=== PATIENT | female | born 1965 | race Caucasian/White ===

== ENCOUNTER 2017-07-15 05:56 | Observation (INO) | payer OTHER ==
[~2017-07-15 05:56] MED LIST: Buffered Lidocaine 0.9% SYRIN* 5 ML/SYR SYRINGE INTRADERM ONE
[2017-07-15] MEDS ORDERED: oxyCODONE/Acetamin 5/325 MG* TAB PO PRN (05:59)
[2017-07-15] MEDS ORDERED: Morphine INJ* 2 MG/ML 1 ML CARPUJECT IV PRN (05:59)
[2017-07-15] MEDS ORDERED: DiMENhydriNATE IV* 50 MG/ML VIAL IV PUSH PRN (05:59)
[2017-07-15] MEDS ORDERED: PROCHLORPERAZINE INJ 5 MG/ML 2 ML VIAL IV PRN (05:59)
[2017-07-15] MEDS ORDERED: Scopolamine 1.5 mg* PATCH TRANSDERM PRN (05:59)
[2017-07-15] MEDS ORDERED: fentaNYL* 50 MCG/ML 2 ML VIAL (100 MCG VIAL) IV PRN (05:59)
[2017-07-15] MEDS ORDERED: Famotidine IV* 10 MG/ML 2 ML (20 mg) IV ONE (06:00)
[2017-07-15] MEDS ORDERED: ceFAZolin 2 GM PREMIX (*) 2 GM/50 ML BAG IVPB ONE (06:03)
[2017-07-15] MEDS ORDERED: Buffered Lidocaine 0.9% SYRIN* 5 ML/SYR SYRINGE ONE (06:03)
[2017-07-15] MEDS ORDERED: Famotidine IV* 10 MG/ML 2 ML (20 mg) ONE (06:03)
[2017-07-15] MEDS ORDERED: Thrombin 5,000 UNITS* 1 APPLIC KIT - topical use - TOPICAL ONE ×2 (07:12→09:25)
[2017-07-15] MEDS ORDERED: Lidocaine 1% MPF wEPI 200,000* 30 ML SDV ONE (07:12)
[2017-07-15] MEDS ORDERED: Bacitracin IV* 50,000 UNITS INJ ONE (07:13)
[2017-07-15] MEDS ORDERED: fentaNYL* 50 MCG/ML 2 ML VIAL (100 MCG VIAL) ONE ×2 (07:34→11:43)
[2017-07-15] MEDS ORDERED: Atracurium* 10 MG/ML 10 ML VIAL ONE (07:34)
[2017-07-15] MEDS ORDERED: KETAMINE HCL* 50 MG/ML 10 ML VIAL ONE (07:34)
[2017-07-15] MEDS ORDERED: Midazolam* 1 MG/ML 10 ML VIAL (10 MG) ONE (07:34)
[2017-07-15] MEDS ORDERED: Phenylephrine IV* 40 MCG/ML 10 ML SYRINGE ONE (08:16)
[2017-07-15] MEDS ORDERED: Glycopyrrolate IV* 0.2 MG/ML 1 ML VIAL ONE (08:17)
[2017-07-15] MEDS ORDERED: Lidocaine 2% PF * 5 ML VIAL ONE (08:17)
[2017-07-15] MEDS ORDERED: Neostigmine Methylsulfate* 2 MG/2 ML SYRINGE ONE (08:17)
[2017-07-15] MEDS ORDERED: Ondansetron INJ* 2 MG/ML VIAL ONE (08:17)
[2017-07-15] MEDS ORDERED: EPHEDrine (Pressors)* 50 MG/ML VIAL ONE (08:17)
[2017-07-15] MEDS ORDERED: Propofol* 10 MG/ML 20 ML BTL IV PUSH ONE (08:17)
[2017-07-15] MEDS ORDERED: Morphine INJ* 10 MG/ML 1 ML CARPUJECT ONE (08:17)
[2017-07-15] MEDS ORDERED: Dexamethasone IV* 4 MG/ML 1 ML (4 MG) ONE (08:17)
[2017-07-15] MEDS ORDERED: Acetaminophen TAB* 325 MG PO PRN (10:03)
[2017-07-15] MEDS ORDERED: Ondansetron INJ* 2 MG/ML VIAL IV PRN (10:03)
[2017-07-15] MEDS ORDERED: Magnesium Hydroxide LIQ* 30 ML UDC PO PRN (10:03)
[2017-07-15] MEDS ORDERED: HYDROcodone/ACETAMIN 5-325 MG* 1 TAB PO PRN ×2 (10:03→10:10)
[2017-07-15] MEDS ORDERED: Labetalol IV* 5 MG/ML 20 ML VIAL ONE (10:08)
[2017-07-15] MEDS ORDERED: Flumazenil* 0.1 MG/ML 5 ML MDV ONE (10:09)
--- NOTE | 2017-07-15 12:01 | RAD ---
HISTORY: Anterior cervical fusion discectomy COMPARISONS: MRI dated March 05, 2017 VIEWS: 3, portable intraoperative views of the spine for localization during spinal surgery. FINDINGS: A lateral view at 8:10 AM demonstrates a needle opposite of C5-C6. A lateral view at 8:30 AM demonstrates a needle within the intervertebral disc space at C5-C6. A lateral view at 10:00 AM demonstrates an anterior cervical fusion plate with screws at C4, C5, and C6. Intervertebral graft material is noted at C4-C5 and C5-C6 IMPRESSION: LIMITED PORTABLE INTRAOPERATIVE VIEWS OF THE SPINE FOR LOCALIZATION DURING SPINAL SURGERY.
[2017-07-15] MEDS ORDERED: Benzocaine/Menthol LOZ* 1 LOZENGE PO PRN (12:42)
[2017-07-15] MEDS ORDERED: HYDROcodone/ACETAMIN 5-325 MG* 1 TAB ONE (12:55)
[2017-07-15] MEDS ORDERED: Lisinopril TAB* 10 MG PO SCH (18:00)
[2017-07-15] MEDS: PAROXETINE 12.5 MG PO SCH (22:58)
[2017-07-15] MEDS ORDERED: RIZATRIPTAN 10 MG PO ONE ×2 (23:00)
[2017-07-16 07:54] VITALS: BP 109/63
--- NOTE | 2017-07-16 07:54 | PN ---
Progress Note - Progress Note Date of Service: 07/16/17 SOAP: Subjective: []POD#1 Doing well Neck soft c/o migraine headache Developed N/V after pain med Objective: []Neuro intact Minimal drain output Assessment: []Satis post op course Plan: [] D/C today D/C Instructions given
[2017-07-16] MEDS ORDERED: traMADol TAB* 50 MG PO PRN (08:03)
[2017-07-16] MEDS ORDERED: HYDROcodone/ACETAMIN 5-325 MG* 1 TAB PO PRN (08:56)
[2017-07-16] MEDS: PAROXETINE 12.5 MG PO SCH (09:26)
--- NOTE | 2017-07-17 07:15 | OP ---
OPERATIVE REPORT: DATE OF OPERATION: 07/15/17 DATE OF : 65 SURGEON: Mayco Paz MD WELDER APPRENTICE: RAYO Ramires ANESTHESIA: General. PRE-OP DIAGNOSIS: Cervical spondylosis, C4-5, C5-6. POST-OP DIAGNOSIS: Cervical spondylosis, C4-5, C5-6. OPERATIVE PROCEDURE: Anterior cervical diskectomy and allograft fusion, C4-5, C5- 6, with anterior i nstrumentation. DESCRIPTION OF PROCEDURE: After satisfactory general anesthesia was obtained, the patient was placed with her head supported on a horseshoe head rest and the neck slightly extended. A scalp x-ray was taken to enable localization of a skin incision over the C5 space. This incision began at midline an d extended to the right side distance of 3 cm. This incision was infiltrated with 1% Xylocaine with epinephrine after which it was turned down sharply to the level of the subcutaneous tissues. A super iorly and inferiorly based subcutaneous flap was then fashioned and the platysma muscle divided along the direction of its fibers. A plane was then developed between the sternocleidomastoid and strap m uscles and carried down to the anterior aspect of the spine. The C5-6 disk space was identified with an additional x-ray after which attention was first directed to the C4-5 level where the attachment of the longus colli muscle was taken down and self-retaining retractor was placed to facilitate expos ure. There was a large anterior osteophyte at this level and this anterior osteophyte was first dril led away along with the anterior two-thirds of disk material. After doing this, Oxford distractor pi ns were placed in the C4 and C5 vertebral bodies and gentle disk space distraction applied. The [facility] at[facility] microscope was brought into the field and the remainder of the procedure was done under mi croscopic visualization. Projecting back at this level were spurs primarily coming out the superior aspect of the C5 vertebral body. This was causing bilateral neural foraminal compromise. The spurs were decompressed using combination of the Midas Cisco drill as well as 1- and 2-mm Kerrison rongeurs. The dissection was carried back until normal dura was encountered. At the conclusion of the decompr ession, a nerve hook went readily with both C5 nerves roots. The interspace was then prepared for re ceipt of an 8-mm bone graft filled with bony matrix, which was slightly countersunk. Attention was then directed to the C5-6 level where again the anterior two-thirds of disk material as well as an anterior spur was removed with the Midas Cisco drill. Oxford distractor pins were then plac ed in the C5 and C6 vertebral bodies and gentle disk space distraction applied. The pathology at thi s level was again one of degenerative disk disease with spondylosis. The dissection was carried back until normal dura was encountered and the spurs removed. At the conclusion of the decompression at this level, both C6 nerve roots were noted to be free in their course. A 7-mm graft was selected for this level and slightly countersunk. A REAC Fueltronic Zevo plate was then selected to run from C4 to C6. This was secured into position with 13-mm soft drilling screws. A post-construct x-ray was taken s howing good graft and screw placement. The wound was then thoroughly irrigated after which a drain w as placed in the prevertebral space and tunneled out toward the right side. The subcutaneous tissues were then reapproximated with 3-0 Vicryl and the skin was closed with Steri-Strips. The estimated b lood loss was less than 50 cc. The final sponge, padding, and needle counts were correct. The patie nt was taken to the recovery room, extubated, and in stable condition. [id number]/[facility] #: [id number]
--- NOTE | 2017-07-17 15:40 | DS ---
DATE OF ADMISSION: 07/15/2017. DATE OF DISCHARGE: 07/16/2017. ATTENDING PHYSICIAN: Dr. Mayco Paz* (dictated by RAYO Russell). DISCHARGE DIAGNOSES: 1. Cervical disk disease, C4-5 and C5-6. 2. Cervical spondylosis, C4-5 and C5-6. 3. History of pulmonary embolism. 4. Hypertension. PROCEDURE: Anterior cervical diskectomy and fusion at C4-5 and C5-6 with anterior instrumentation. HOSPITAL COURSE: This 51-year-old female was seen in the office in January of 2017 with complaint of three months of neck pain. She had participated in conservative treatment, including physical therapy over the next several months and failed to improve. Elective surgical intervention was then discussed with the patient and she decided to proceed with this option. On the day of admission, she was taken to surgery where under general anesthesia an anterior cervical diskectomy and fusion at C4-5 and C5-6 with anterior instrumentation operation was carried out. Postoperatively, she was feeling very well. She complained of throat soreness with swallowing and mild neck pain at the incision site. She was eating soft foods without difficulty and swallowing liquids easily. She was ambulating independently and she was voiding without difficulty. On the first postoperative day, the Santhosh wound drain had slowed and was therefore discontinued. She was discharged home on the first postoperative day. DISCHARGE INSTRUCTIONS: Activity level and wound care were discussed with the patient and information was provided. She was also instructed to resume the Lovenox and Coumadin. DISCHARGE MEDICATIONS: Castell 5/325 mg one to two tabs by mouth every 4 hours as needed for pain. FOLLOW-UP: The patient will be seen in the office on July 30 for follow-up evaluation. RAYO RUSSELL [id number]/[facility] #: [id number] [facility]OSPITALMarc
[2017-07-18] MEDS ORDERED: Scopolamine PATCH Remove* 1 NOTE MISC PATCH OFF ONE (06:00)
== END 2017-07-16 11:20 | disposition home or self-care (01) ==
LOC: OR 05:56 → SSU 12:20
PROVIDERS: ADMIT Neurological Surgery; ATTEND Neurological Surgery
PROC: 0RB50ZZ Excision of Cervicothoracic Vertebral Disc, Open Approach (ICD-10-PCS; 2017-07-15)
PROC: 0RG20A0 Fusion of 2 or more Cervical Vertebral Joints with Interbody Fusion Device, Anterior Approach, Anterior Column, Open Approach (ICD-10-PCS; 2017-07-15)
PROC: 0RB30ZZ Excision of Cervical Vertebral Disc, Open Approach (ICD-10-PCS; principal; 2017-07-15 07:45)
DX: M50.321 Other cervical disc degeneration at C4-C5 level (principal); M50.322 Other cervical disc degeneration at C5-C6 level; M47.9 Spondylosis, unspecified; I10 Essential (primary) hypertension; Z86.711 Personal history of pulmonary embolism
CPT/HCPCS: 72020; 96374; 96375; 96376; A9270-GY; C1713; C1776; G0378; J0690; J1100; J2001; J2250; J2270; J2405; J2704; J3010

== ENCOUNTER 2018-02-28 12:38 | Emergency (ER) | payer OTHER ==
[2018-02-28 13:26] LABS: ABS Basophils 0 10^3/ul (0-0.2); ABS Eosinophils 0 10^3/ul (0-0.6); ABS Lymphocytes 1.5 10^3/ul (1.0-4.8); ABS Monocytes 0.4 10^3/ul (0-0.8); ABS Neutrophils 2.5 10^3/ul (1.5-7.7); ABS Nucleated RBC 0 10^3/ul; Eosinophil % 0.7 % (0-6); Hematocrit 35 % (35-47); Hemoglobin 11.9 g/dl (12.0-16.0); Lymphocyte % 33.9 % (25-47); Mean Corpuscular HGB Conc 34 g/dl (31-36); Mean Corpuscular Hemoglobin 34 pg (27-31); Mean Corpuscular Volume 97 fL (80-97); Nucleated Red Blood Cells % 0; Platelet Count 225 10^3/ul (150-450); Red Blood Count 3.54 10^6/ul (4.00-5.40); Red Cell Distribution Width 13 % (10.5-15); White Blood Count 4.5 10^3/ul (3.5-10.8)
[2018-02-28 13:43] LABS: EGFR Non-African American 72.2 (>60)
--- NOTE | 2018-02-28 14:58 | RAD ---
Indication: Shortness of breath. 2 views of the chest including dual energy PA views demonstrate no mediastinal shift. Heart is of normal size and configuration. Lung calle are clear. When compared to previous exam of July 08, 2017 no significant change is noted. IMPRESSION: No active cardiopulmonary disease is noted.
--- NOTE | 2018-02-28 15:19 | ED ---
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 She feels this may be a side effect of her recent medication change , right was concerned over another PE. She does not endorse chest pain, however endorses midsternal chest "pressure" only with shortness of breath. The SOB is intermittent, only slightly worse with exertion and not worse with deep inspiration. Denies any fevers, sweats, chills. Denies any cough, cough production, abdominal pain, nausea, vomiting. Normal BM. Denies any calf pain , OCP use, known malignancy or smoking history. Denies any calf pain. Patient is very active and continues to run daily. Diet is fair to good. Alcohol use is scarce and denies any drug use. Patient states she has had full workups in the past to assess the reasoning behind her saddle PEs but had no findings. - History of Current Complaint Chief Complaint: EDShortnessOfBreath Stated Complaint: SOB Time Seen by Provider: 02/28/18 12:58 Hx Obtained From: Patient Hx Last Menstrual Period: having hysterectomy 07/07/12 Onset/Duration: Started Hours Ago Timing: Constant Initial Severity: Mild Current Severity: Mild Pain Intensity: 0 Pain Scale Used: 0-10 Numeric Associated Signs and Symptoms: Positive: Shortness of Breath. Negative: Cough, Productive Cough, Wheezing, Nasal Congestion - Risk Factors Pulmonary Embolism Risk Factors: Negative Cardiac Risk Factors: Negative Atrial Fibrillation Risk Factors: Negative TAD Risk Factors: Negative - Allergy/Home Medications Allergies/Adverse Reactions: Allergies Allergy/AdvReac Type Severity Reaction Status Date / Time chlorhexidine Allergy Hives Verified 02/28/18 12:47 ENVIRONMENTAL Allergy See Comment Uncoded 02/28/18 12:47 Home Medications: Home Medications Xarelto 20 mg 20 mg PO DAILY 02/28/18 [History Confirmed 02/28/18] PMH/Surg Hx/FS Hx/Imm Hx Previously Healthy: Yes Endocrine/Hematology History: Denies: Hx Diabetes, Hx Thyroid Disease Cardiovascular History: Reports: Hx Embolism, Hx Hypertension - MEDICATION, Other Cardiovascular Problems/Disorders - HX PE 2012. ON WARARIN, JUST CHANGED TO XARELTO Denies: Hx Angina, Hx Congestive Heart Failure, Hx Coronary Artery Disease, Hx Hypercholesterolemia, Hx Myocardial Infarction, Hx Pacemaker/ICD, Hx Valvular Heart Disease Respiratory History: Reports: Hx Pulmonary Embolism - 2013, Hx Sleep Apnea Denies: Hx Asthma, Hx Chronic Obstructive Pulmonary Disease (COPD) GI History: Denies: Hx Ulcer History: Denies: Hx Renal Disease Musculoskeletal History: Reports: Other Musculoskeletal History - NECK PAIN Sensory History: Reports: Hx Contacts or Glasses Denies: Hx Hearing Aid Opthamlomology History: Reports: Hx Contacts or Glasses Neurological History: Reports: Hx Headaches, Hx Migraine - stress related and from neck issues, Other Neuro Impairments/Disorders - PAIN CLINIC PT. Psychiatric History: Reports: Hx Anxiety - panic attacks, Hx Panic Disorder - Surgical History Surgery Procedure, Year, and Place: BUNIONECTOMY BILAT FEET;. UTERINE ABLATION AGE 17;. HYSTERECTOMY 07/08;. CYST REMOVED FROM RIGHT FOOT;. APPENDECTOMY 2014; Hx Anesthesia Reactions: No - Immunization History Hx Pertussis Vaccination: No Immunizations Up to Date: Unable to Obtain/Confirm Infectious Disease History: No Infectious Disease History: Denies: Hx Hepatitis, Hx Human Immunodeficiency Virus (HIV), Traveled Outside the [place] in Last 30 Days - Social History Occupation: Employed Full-time Lives: With Family Alcohol Use: Occasionally Alcohol Amount: 2-3/wk Hx Substance Use: No Substance Use Type: Reports: None Hx Tobacco Use: No Smoking Status (MU): Never Smoked Tobacco Amount Used/How Often: pack a day for 4 years Have You Smoked in the Last Year: No Review of Systems Constitutional: Negative Negative: Fever, Chills, Fatigue, Skin Diaphoresis Negative: Palpitations, Chest Pain Positive: Shortness Of Breath. Negative: Cough Genitourinary: Negative Positive: no symptoms reported, see HPI Negative: Arthralgia, Myalgia, Decreased ROM Skin: Negative Neurological: Negative All Other Systems Reviewed And Are Negative: Yes Physical Exam Triage Information Reviewed: Yes Vital Signs On Initial Exam: Initial Vitals Temp Pulse Resp BP Pulse Ox 99.0 F 72 16 131/79 100 02/28/18 12:43 02/28/18 12:43 02/28/18 12:43 02/28/18 12:43 02/28/18 12:43 Vital Signs Reviewed: Yes Appearance: Positive: Well-Appearing, Well-Nourished Skin: Positive: Warm, Skin Color Reflects Adequate Perfusion Head/Face: Positive: Normal Head/Face Inspection Eyes: Positive: EOMI, MARTIN, Conjunctiva Clear Neck: Positive: Supple, No Lymphadenopathy Respiratory/Lung Sounds: Positive: Clear to Auscultation, Breath Sounds Present Cardiovascular: Positive: RRR, Pulses are Symmetrical in both Upper and Lower Extremities Musculoskeletal: Positive: Normal, Strength/ROM Intact Neurological: Positive: Normal, Sensory/Motor Intact, Alert, Oriented to Person Place, Time, Speech Normal Psychiatric: Positive: Normal, Affect/Mood Appropriate AVPU Assessment: Alert Diagnostics - Vital Signs Vital Signs Temp Pulse Resp BP Pulse Ox 02/28/18 12:43 99.0 F 72 16 131/79 100 - Laboratory Lab Results: Lab Results 02/28/18 02/28/18 02/28/18 Range/Units 13:19 13:19 13:19 WBC 4.5 (3.5-10.8) 10^3/ul RBC 3.54 L (4.00-5.40) 10^6/ul Hgb 11.9 L (12.0-16.0) g/dl Hct 35 (35-47) % MCV 97 (80-97) fL MCH 34 H (27-31) pg MCHC 34 (31-36) g/dl RDW 13 (10.5-15) % Plt Count 225 (150-450) 10^3/ul MPV 8.0 (7.4-10.4) um3 Neut % (Auto) 56.3 (38-83) % Lymph % (Auto) 33.9 (25-47) % Holmes % (Auto) 8.2 H (0-7) % Eos % (Auto) 0.7 (0-6) % Baso % (Auto) 0.9 (0-2) % Absolute Neuts (auto) 2.5 (1.5-7.7) 10^3/ul Absolute Lymphs (auto) 1.5 (1.0-4.8) 10^3/ul Absolute Monos (auto) 0.4 (0-0.8) 10^3/ul Absolute Eos (auto) 0 (0-0.6) 10^3/ul Absolute Basos (auto) 0 (0-0.2) 10^3/ul Absolute Nucleated RBC 0 10^3/ul Nucleated RBC % 0 D-Dimer, Quantitative < 200 (Less Than 230) ng/mL Sodium 138 (135-145) mmol/L Potassium 3.6 (3.5-5.0) mmol/L Chloride 105 (101-111) mmol/L Carbon Dioxide 27 (22-32) mmol/L Anion Gap 6 (2-11) mmol/L BUN 11 (6-24) mg/dL Creatinine 0.83 (0.51-0.95) mg/dL Est GFR ( Amer) 87.4 (>60) Est GFR (Non-Af Amer) 72.2 (>60) BUN/Creatinine Ratio 13.3 (8-20) Glucose 96 (70-100) mg/dL Lactic Acid (0.5-2.0) mmol/L Calcium 9.0 (8.6-10.3) mg/dL Total Bilirubin 0.40 (0.2-1.0) mg/dL AST 17 (13-39) U/L ALT 10 (7-52) U/L Alkaline Phosphatase 56 (34-104) U/L Troponin I 0.00 (<0.04) ng/mL Total Protein 6.3 L (6.4-8.9) g/dL Albumin 3.8 (3.2-5.2) g/dL Globulin 2.5 (2-4) g/dL Albumin/Globulin Ratio 1.5 (1-3) /11/12 Range/Units 13:19 WBC (3.5-10.8) 10^3/ul RBC (4.00-5.40) 10^6/ul Hgb (12.0-16.0) g/dl Hct (35-47) % MCV (80-97) fL MCH (27-31) pg MCHC (31-36) g/dl RDW (10.5-15) % Plt Count (150-450) 10^3/ul MPV (7.4-10.4) um3 Neut % (Auto) (38-83) % Lymph % (Auto) (25-47) % Holmes % (Auto) (0-7) % Eos % (Auto) (0-6) % Baso % (Auto) (0-2) % Absolute Neuts (auto) (1.5-7.7) 10^3/ul Absolute Lymphs (auto) (1.0-4.8) 10^3/ul Absolute Monos (auto) (0-0.8) 10^3/ul Absolute Eos (auto) (0-0.6) 10^3/ul Absolute Basos (auto) (0-0.2) 10^3/ul Absolute Nucleated RBC 10^3/ul Nucleated RBC % D-Dimer, Quantitative (Less Than 230) ng/mL Sodium (135-145) mmol/L Potassium (3.5-5.0) mmol/L Chloride (101-111) mmol/L Carbon Dioxide (22-32) mmol/L Anion Gap (2-11) mmol/L BUN (6-24) mg/dL Creatinine (0.51-0.95) mg/dL Est GFR ( Amer) (>60) Est GFR (Non-Af Amer) (>60) BUN/Creatinine Ratio (8-20) Glucose (70-100) mg/dL Lactic Acid 1.5 (0.5-2.0) mmol/L Calcium (8.6-10.3) mg/dL Total Bilirubin (0.2-1.0) mg/dL AST (13-39) U/L ALT (7-52) U/L Alkaline Phosphatase (34-104) U/L Troponin I (<0.04) ng/mL Total Protein (6.4-8.9) g/dL Albumin (3.2-5.2) g/dL Globulin (2-4) g/dL Albumin/Globulin Ratio (1-3) Result Diagrams: 02/28/18 13:19 02/28/18 13:19 Lab Statement: Any lab studies that have been ordered have been reviewed, and results considered in the medical decision making process. Disposition - Course Course Of Treatment: On physical examination, she is not diaphoretic and is nontoxic in appearing. A & O x3. Recently switched from her warfarin 2 Ahlquist last week, which is when her symptoms developed. Denies any history of allergies or asthma. D-dimer obtained and is 200. Other labs obtained and are all with WNL. She is feeling well and is okay for discharge at this time. She understands return precautions. She will remain on her Eliquis until she follows up with her PCP regarding a potential medication change. Chest x-ray obtained and shows no acute cardio pulmonary findings. EKG shows normal sinus rhythm with a rate of 72. - Diagnoses Provider Diagnoses: Shortness of breath Discharge - Sign-Out/Discharge Documenting (check all that apply): Patient Departure - Discharge Plan Condition: Stable Disposition: HOME Referrals: Liban BILL,Justin Benítez [Primary Care Provider] - Additional Instructions: Discuss with your PCP regarding the change of medication we had discussed - Billing Disposition and Condition Condition: STABLE Disposition: Home
[2018-02-28 15:25] VITALS: BP 119/78
== END 2018-02-28 15:24 | disposition home or self-care (01) ==
LOC: ED 12:38
DX: R06.02 Shortness of breath (principal); Z86.711 Personal history of pulmonary embolism
CPT/HCPCS: 36415; 71046; 80053; 83605; 84484; 85025; 85379; 93005; 99282

== ENCOUNTER 2018-03-09 03:55 | Emergency (ER) | payer OTHER ==
--- NOTE | 2018-03-09 04:06 | ED ---
Shortness of Breath - HPI Summary HPI Summary: This is scribe Fortunato Yeboah documenting for attending Armen Mcbride MD. A 52 y/o female presents to ED c/o SOB. In the ED room, the patient has a pulse of 83 BPM and O2 saturation of 100. Currently, the patient is in no pain, however, she feels SOB and pressure in her chest. As per triage, "Pt states she feels sob and has been evaluated in ED and as op with negative workup including CTA". According to the patient, she has been experiencing SOB for the past 2 weeks. She stated that yesterday, he SOB was really bad to the point where she couldn't go to sleep. No other medical issues besides chief complaint. She noted that she was in [facility] ED last Friday where she had a full-workup including EKG, CXR and CT scans to rule out PE as she does have PMHx of PE. Patient stated that her MD, Dr. Hudson, monitors her blood thinner and he recently switched her medication from Xaralto to Warfarin. She is currently taking Warfarin and Lovenox since last Friday or Friday. PMHx of PE and panic attacks, denies depression and anxiety. Patient stated she drank ETOH today which was a bloody munira. I, Dr. Mcbride personally performed the services described in this documentation as scribed in my presence and it is both accurate and complete. - History of Current Complaint Chief Complaint: EDShortnessOfBreath Time Seen by Provider: 03/09/18 04:04 Hx Obtained From: Patient Onset/Duration: Sudden Onset, Lasting Weeks, Still Present Timing: Constant Current Severity: None Dyspnea At: Rest Aggrevating Factors: Nothing Alleviating Factors: Nothing Associated Signs & Symptoms: Negative - Allergy/Home Medications Allergies/Adverse Reactions: Allergies Allergy/AdvReac Type Severity Reaction Status Date / Time chlorhexidine Allergy Hives Verified 02/28/18 12:47 ENVIRONMENTAL Allergy See Comment Uncoded 02/28/18 12:47 Home Medications: Home Medications Lovenox 100 mg SUBCUT DAILY 03/09/18 [History Confirmed 03/09/18] Warfarin Sodium 10 mg PO DAILY 03/09/18 [History Confirmed 03/09/18] PMH/Surg Hx/FS Hx/Imm Hx Endocrine/Hematology History: Denies: Hx Diabetes, Hx Thyroid Disease Cardiovascular History: Reports: Hx Embolism, Hx Hypertension - MEDICATION, Other Cardiovascular Problems/Disorders - HX PE 2012. ON WARARIN, JUST CHANGED TO XARELTO Denies: Hx Angina, Hx Congestive Heart Failure, Hx Coronary Artery Disease, Hx Hypercholesterolemia, Hx Myocardial Infarction, Hx Pacemaker/ICD, Hx Valvular Heart Disease Respiratory History: Reports: Hx Pulmonary Embolism - 2013, Hx Sleep Apnea Denies: Hx Asthma, Hx Chronic Obstructive Pulmonary Disease (COPD) GI History: Denies: Hx Ulcer History: Denies: Hx Renal Disease Musculoskeletal History: Reports: Other Musculoskeletal History - NECK PAIN Sensory History: Reports: Hx Contacts or Glasses Denies: Hx Hearing Aid Opthamlomology History: Reports: Hx Contacts or Glasses Neurological History: Reports: Hx Headaches, Hx Migraine - stress related and from neck issues, Other Neuro Impairments/Disorders - PAIN CLINIC PT. Psychiatric History: Reports: Hx Anxiety - panic attacks, Hx Panic Disorder - Surgical History Surgery Procedure, Year, and Place: BUNIONECTOMY BILAT FEET;. UTERINE ABLATION AGE 17;. HYSTERECTOMY 07/08;. CYST REMOVED FROM RIGHT FOOT;. APPENDECTOMY 2014;. cervical fusion Hx Anesthesia Reactions: No Infectious Disease History: No Infectious Disease History: Denies: Hx Hepatitis, Hx Human Immunodeficiency Virus (HIV), Traveled Outside the US in Last 30 Days - Family History Known Family History: Negative: Seizure Disorder - Social History Alcohol Use: Occasionally Alcohol Amount: 2-3/wk Hx Substance Use: No Substance Use Type: Reports: None Hx Tobacco Use: No Smoking Status (MU): Never Smoked Tobacco Amount Used/How Often: pack a day for 4 years Have You Smoked in the Last Year: No Review of Systems Negative: Fever Positive: Other - POSITIVE: Chest pressure Positive: Shortness Of Breath All Other Systems Reviewed And Are Negative: Yes Physical Exam - Summary Physical Exam Summary: VITAL SIGNS: Reviewed. GENERAL: Patient is a well-developed and nourished female who is lying comfortable in the stretcher. Patient is not in any acute respiratory distress. Patient has alcoholic breathe. Patient is anxious. HEAD AND FACE: No signs of trauma. No ecchymosis, hematomas or skull depressions. No sinus tenderness. EYES: PERRLA, EOMI x 2, No injected conjunctiva, no nystagmus. EARS: Hearing grossly intact. Ear canals and tympanic membranes are within normal limits. MOUTH: Oropharynx within normal limits. NECK: Supple, trachea is midline, no adenopathy, no JVD, no carotid bruit, no c- spine tenderness, neck with full ROM. CHEST: Symmetric, no tenderness at palpation LUNGS: Clear to auscultation bilaterally. No wheezing or crackles. CVS: Regular rate and rhythm, S1 and S2 present, no murmurs or gallops appreciated. ABDOMEN: Soft, non-tender. No signs of distention. No rebound no guarding, and no masses palpated. Bowel sounds are normal. EXTREMITIES: FROM in all major joints, no edema, no cyanosis or clubbing. NEURO: Alert and oriented x 3. No acute neurological deficits. Speech is normal and follows commands. SKIN: Dry and warm PSYCH: Patient is anxious. Triage Information Reviewed: Yes Vital Signs On Initial Exam: Initial Vitals Temp Pulse Resp BP Pulse Ox 97.8 F 70 15 137/83 100 03/09/18 03:57 03/09/18 03:57 03/09/18 03:57 03/09/18 03:57 03/09/18 03:57 Vital Signs Reviewed: Yes Diagnostics - Vital Signs Vital Signs Temp Pulse Resp BP Pulse Ox 03/09/18 03:57 97.8 F 70 15 137/83 100 - Laboratory Result Diagrams: 03/09/18 04:34 03/09/18 04:34 Lab Statement: Any lab studies that have been ordered have been reviewed, and results considered in the medical decision making process. Re-Evaluation - Re-Evaluation First Eval Re-Evaluation Time: 05:35 Change: Improved Comment: Patient is feeling much better. Course/Dx - Course Course Of Treatment: A 52 y/o female presents to ED c/o SOB. In the ED room, the patient has a pulse of 83 BPM and O2 saturation of 100. Currently, the patient is in no pain, however, she feels SOB and pressure in her chest. No laboratory scans were done. In the ED course, the patient recieved Ativan. During reevaluation, the patient revealed that she was feeling much better. Patient will be discharged with a diagnosis of anxiety. Patient is to follow up with PCP in 1-2 days. Patient is agreeable with this plan. - Diagnoses Provider Diagnoses: Anxiety Discharge - Sign-Out/Discharge Documenting (check all that apply): Patient Departure - DISCHARGE - Discharge Plan Condition: Stable Disposition: HOME Patient Education Materials: Anxiety (ED) Referrals: Liban BILL,Justin Benítez [Primary Care Provider] - 2 Days Additional Instructions: FOLLOW UP WITH PRIMARY CARE IN 1-2 DAYS. RETURN TO ED FOR ANY NEW OR WORSENING SYMPTOMS.
[2018-03-09] MEDS ORDERED: LORazepam INJ* 2 MG/ML 1 ML VIAL IV PUSH ONE (04:25)
[2018-03-09 04:45] LABS: ABS Basophils 0 10^3/ul (0-0.2); ABS Eosinophils 0 10^3/ul (0-0.6); ABS Lymphocytes 2.5 10^3/ul (1.0-4.8); ABS Monocytes 0.4 10^3/ul (0-0.8); ABS Neutrophils 2.1 10^3/ul (1.5-7.7); ABS Nucleated RBC 0 10^3/ul; Eosinophil % 0.9 % (0-6); Hematocrit 37 % (35-47); Hemoglobin 12.5 g/dl (12.0-16.0); Mean Corpuscular HGB Conc 34 g/dl (31-36); Mean Corpuscular Hemoglobin 33 pg (27-31); Mean Corpuscular Volume 98 fL (80-97); Mean Platelet Volume 7.9 um3 (7.4-10.4); Nucleated Red Blood Cells % 0.1; Platelet Count 237 10^3/ul (150-450); Red Blood Count 3.75 10^6/ul (4.00-5.40); Red Cell Distribution Width 14 % (10.5-15)
[2018-03-09 04:52] LABS: INR 1.18 (0.77-1.02)
[2018-03-09 05:00] LABS: EGFR Non-African American 70.2 (>60)
[2018-03-09 06:09] VITALS: BP 114/71
== END 2018-03-09 06:21 | disposition home or self-care (01) ==
LOC: ED 03:55
DX: F41.9 Anxiety disorder, unspecified (principal); R06.02 Shortness of breath; R07.89 Other chest pain; Z86.59 Personal history of other mental and behavioral disorders; Z86.711 Personal history of pulmonary embolism; Z79.01 Long term (current) use of anticoagulants; Z88.8 Allergy status to other drugs, medicaments and biological substances
CPT/HCPCS: 36415; 80053; 80320; 85025; 85610; 85730; 96374; 99283; G0480; J2060

== ENCOUNTER 2019-06-22 08:21 | Emergency (ER) | payer OTHER ==
--- OUTSIDE RECORDS SUMMARY | 2019-06-22 08:26 | XMS REPORT | Continuity of Care Document ---
:1965 External Reference #:[id number] Author Name Kennedy Oswald MD (transmitted by agent of provider Jolanta Michel ) Address [address] [place] [address] Care Team Providers Name Role Phone Justin Louie MD - Family Medicine Care Team Information Transportation Technician Problems Active Problems Provider Date Pulmonary embolism Ray Ferrell M.D., [facility], Onset: 07/13/2013 [facility] Chest pain Ray Frerell M.D., [facility], Onset: 07/13/2013 [facility] Dyspnea Ray Ferrell M.D., [facility], Onset: 07/13/2013 [facility] Panic disorder without agoraphobia Ray Ferrell M.D., [facility], Onset: 09/01 [facility] Obstructive sleep apnea syndrome Merissa Viveros MD Onset: 06/14/2014 Degeneration of lumbar intervertebral Mayco Paz M.D. 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 Onset: 02/03/2017 Cervical disc disorder Mayco Paz M.D. 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 Onset: 08/13/2017 Social History Type Date Description Comments Sex Unknown ETOH Use Occasionally consumes alcohol Tobacco Use Start: Unknown End: Patient is a former Quit at age 22 Unknown smoker (smoked for 3 years). Recreational Drug Use Denies Drug Use Smoking Status Reviewed: 04/28/19 Patient is a former Quit at age 22 smoker (smoked for 3 years). Allergies, Adverse Reactions, Alerts Active Allergies Reaction Severity Comments Date Topical -PT Does Not Remember Name. 02/03/2017 Inactive Allergies NKDA 07/13/2013 Medications Active Medications SIG Qnty Indications Ordering Provider Date Paxil CR 1 daily 30tabs Unknown 12.5mg Tablets ER 24HR Lisinopril 1 po qd 90tabs Unknown 20mg Tablets Warfarin Sodium 1 po qd as 90tabs Unknown 10mg directed Tablets Omeprazole Take 1 Capsule By Unknown 20mg Mouth Every Day, Capsules DR Take 30 To 60 Minutes Before A Meal Rizatriptan Benzoate Take 1 Tablet By Unknown Mouth as Needed 10mg Tablets For Migraine Headache, May Repeat After 2 Hours.Not To Exceed 3 Tablets A Day Immunizations Description No Information Available Vital Signs Date Vital Result Comment 04/28/2019 1:05pm Height 65.5 inches 5'5.50" Weight 150.00 lb BP Systolic 112 mmHg BP Diastolic 74 mmHg Pain Level 2 BMI (Body Mass Index) 24.6 kg/m2 02/17/2019 3:29pm Height 65.5 inches 5'5.50" Weight 150.00 lb Heart Rate 76 /min BP Systolic Sitting 124 mmHg BP Diastolic Sitting 82 mmHg Pain Level 4 BMI (Body Mass Index) 24.6 kg/m2 Results Description No Information Available Procedures Description No Information Available Medical Devices Description No Information Available Encounters Type Date Location Provider Dx Diagnosis Office Visit 02/17/2019 [facility]oud, M47.812 Spondylosis w/ o 3:30p [facility] myelopathy or radiculopathy, cervical region Office Visit 01/20/2019 [facility] Stroud, M47.892 Other spondylosis, 10:30a [facility] cervical region Z98.1 Arthrodesis status Assessments Date Code Description Provider 04/28/2019 M47.22 Other spondylosis with radiculopathy, Kennedy Oswald MD cervical region 02/17/2019 M47.812 Spondylosis without myelopathy or RAYO Doan radiculopathy, cervical re 01/20/2019 M47.892 Cervical spondylosis RAYO Doan 01/20/2019 Z98.1 Arthrodesis status RAYO Doan Plan of Treatment Future Appointment(s):07/12/2019 1:30 pm - Kennedy Oswald MD at [facility]04/28/2019 - Kennedy Oswald, MDM47.22 Other spondylosis with radiculopathy, cervical regionNew Therapy:Physical TherapyFollow up:RV in 2-3 months Functional Status Description No Information Available Mental Status Description No Information Available Referrals Description No Information Available
[2019-06-22 08:47] VITALS: BP 134/72
--- NOTE | 2019-06-22 10:05 | UC ---
Eye Complaint HPI - HPI Summary HPI Summary: WOKE UP THIS MORNING WITH REDNESS AND EDEMA OF BILATERAL UPPER AND LOWER EYELIDS AFTER USING A NEW MASCARA FOR THE PAST 2 DAYS. THE SKIN IS ITCHY AND IRRITATED. SHE DENIES ANY REDNESS OF THE EYE ITSELF. NO PAIN WITH EXTRAOCULAR MOVEMENTS. NO FOREIGN BODY SENSATION. NO DRAINAGE FROM THE EYE. NO SENSITIVITY TO LIGHT, NAUSEA OR VISUAL DISTURBANCES. - History of Current Complaint Chief Complaint: UCEye Stated Complaint: EYE IRRITATION Time Seen by Provider: 06/22/19 09:58 Hx Obtained From: Patient Hx Last Menstrual Period: having hysterectomy 07/07/12 Onset/Duration: Sudden Onset, Lasting Hours, Still Present Timing: Constant Severity Initially: Moderate Severity Currently: Moderate Pain Intensity: 0 Pain Scale Used: 0-10 Numeric Location of Injury: Eye Lid (lower), Eye Lid (upper), Periorbital Aggravating Factor(s): Nothing Alleviating Factor(s): Nothing Associated Signs And Symptoms: Positive: Swelling. Negative: Photophobia, Drainage (Clear), Drainage (Purulent), Vision Impairment Bilateral - Allergies/Home Medications Allergies/Adverse Reactions: Allergies Allergy/AdvReac Type Severity Reaction Status Date / Time chlorhexidine Allergy Hives Verified 06/22/19 08:49 ENVIRONMENTAL Allergy See Comment Uncoded 06/22/19 08:49 PMH/Surg Hx/FS Hx/Imm Hx - Additional Past Medical History Additional PMH: PE ON WARFARIN Cardiovascular History: Hypertension - Surgical History Surgical History: Yes Surgery Procedure, Year, and Place: BUNIONECTOMY BILAT FEET;. UTERINE ABLATION AGE 17;. HYSTERECTOMY 07/08;. CYST REMOVED FROM RIGHT FOOT;. APPENDECTOMY 2014;. cervical fusion - Family History Known Family History: Positive: Non-Contributory Negative: Seizure Disorder - Social History Alcohol Use: Occasionally Alcohol Amount: 2-3/wk Substance Use Type: None Smoking Status (MU): Former Smoker Amount Used/How Often: pack a day for 4 years Have You Smoked in the Last Year: No When Did the Patient Quit Smoking/Using Tobacco: age 22 Review of Systems All Other Systems Reviewed And Are Negative: Yes Constitutional: Positive: Negative Skin: Positive: Other - REDNESS AROUND BOTH EYES Eyes: Positive: Negative. Negative: Drainage, Eye Redness, Photophobia Respiratory: Positive: Negative Cardiovascular: Positive: Negative Gastrointestinal: Positive: Negative Physical Exam Triage Information Reviewed: Yes Appearance: Well-Appearing, No Pain Distress, Well-Nourished Vital Signs: Initial Vital Signs Temp 98.0 F 06/22/19 08:41 Pulse 65 06/22/19 08:41 Resp 16 06/22/19 08:41 BP 134/72 06/22/19 08:41 Pulse Ox 99 06/22/19 08:41 Vital Signs Reviewed: Yes Eyes: Positive: Conjunctiva Clear, Other: - PERRL, EOMI. Negative: Discharge ENT: Positive: Hearing grossly normal Neck: Positive: Supple Respiratory: Positive: No respiratory distress, No accessory muscle use Cardiovascular: Positive: Pulses Normal Abdomen Description: Positive: Soft Musculoskeletal: Positive: No Edema Neurological: Positive: Alert Psychological: Positive: Age Appropriate Behavior Skin: Positive: Other - PERIORBITAL SKIN AND EYELIDS WITH MILD EDEMA AND ERYTHEMA. Eye Complaint Course/Dx - Course Course Of Treatment: PRESENTATION CONSISTENT WITH ALLERGIC CONTACT DERMATITIS STEMMING FROM HER NEW MASCARA. SHE WILL STOP USING THIS NEW PRODUCT. ANTIHISTAMINE AND COOL COMPRESSES DAILY. OTC TOPICAL HYDROCORTISONE SPARINGLY TO THE SKIN. PATIENT CAUTIONED TO AVOID MUCOUS MEMBRANE EXPOSURE. IF SYMPTOMS NOT IMPROVING OVER THE NEXT COUPLE OF DAYS SHE MAY FILL THE PRESCRIPTION FOR THE ORAL PREDNISONE. FOLLOW-UP WITH AN EYE DOCTOR IF SYMPTOMS WORSEN. - Differential Dx/Diagnosis Provider Diagnosis: Allergic dermatitis Discharge ED - Sign-Out/Discharge Documenting (check all that apply): Patient Departure All imaging exams completed and their final reports reviewed: No Studies - Discharge Plan Condition: Stable Disposition: HOME Prescriptions: predniSONE TAB* [Deltasone 20 MG TAB*] 40 mg PO DAILY #10 tab Patient Education Materials: Contact Dermatitis (ED) Referrals: Liban BILL,Justin Benítez [Primary Care Provider] - If Needed Additional Instructions: YOUR PRESENTATION IS CONSISTENT WITH AN ALLERGIC CONTACT DERMATITIS FROM THE NEW MASCARA. STOP USING THIS PRODUCT. I RECOMMEND NO EYE MAKEUP UNTIL YOUR SYMPTOMS HAVE COMPLETELY RESOLVED. USE DAILY HYPOALLERGENIC MOISTURIZING LOTION AVOID HEAT AND HOT WATER TAKE OTC ANTIHISTAMINE DAILY (CLARITIN (LORATADINE) IN THE MORNING, 25-50MG BENADRYL AT NIGHT - BENADRYL MAY BE SEDATING) DO NOT SCRATCH KEEP COOL, CLEAN AND DRY USE TOPICAL OTC HYDROCORTISONE SPARINGLY 2 TIMES DAILY ON ITCHY SPOTS. KEEP AWAY FROM MUCOUS MEMBRANES. IF SYMPTOMS ARE NOT IMPROVING WITH COOL COMPRESSES, TOPICAL STEROID AND ANTIHISTAMINES CAN TAKE PREDNISONE DAILY PRESCRIBED. BE AWARE THAT THIS MEDICATION MAY INTERFERE WITH YOUR INR. GO TO THE ED WITHOUT FAIL IF YOU DEVELOP ANY RESPIRATORY INVOLVEMENT, TONGUE/ LIP SWELLING, FEVER, NAUSEA/VOMITING OR ANY OTHER CONCERNING SYMPTOMS. - Billing Disposition and Condition Condition: STABLE Disposition: Home
== END 2019-06-22 10:35 | disposition home or self-care (01) ==
LOC: UCEAST 08:21
DX: L30.8 Other specified dermatitis (principal); I10 Essential (primary) hypertension; Z88.8 Allergy status to other drugs, medicaments and biological substances; Z91.09 Other allergy status, other than to drugs and biological substances; Z87.891 Personal history of nicotine dependence
CPT/HCPCS: 99212; G0463